=== PATIENT | female | born 2000 | race African-American/Black ===

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

== ENCOUNTER 2021-07-09 01:30 | Emergency (ER) | payer MEDICAID, OTHER ==
[~2021-07-09] VITALS: Ht 157.5 cm; Wt 68.5 kg
[2021-07-09 02:00] VITALS: BP 122/58
[2021-07-09] MEDS ORDERED: TOPUD MT (02:54)
== END 2021-07-09 03:47 | disposition home or self-care (01) ==
LOC: ER 01:30
DX: M25.572 Pain in left ankle and joints of left foot (principal); F31.9 Bipolar disorder, unspecified; V03.90XA Pedestrian on foot injured in collision with car, pick-up truck or van, unspecified whether traffic or nontraffic accident, initial encounter; Y93.01 Activity, walking, marching and hiking; Y92.9 Unspecified place or not applicable
CPT/HCPCS: 73610; 81025; 99283

== ENCOUNTER 2024-01-15 23:30 | Emergency (ER) | payer MEDICAID, OTHER ==
[~2024-01-15] VITALS: Ht 157.5 cm; Wt 64.0 kg
[~2024-01-15 23:30] MED LIST changes: +TOPUD MT
[2024-01-16 00:23] VITALS: O2SAT 100
[2024-01-16] MEDS ORDERED: ONDANSETRON HCL 4MG TABLET PO ONE (01:15)
[2024-01-16 01:57] LABS: BASOPHILS % 0.3 % (0.0-2.0); EOSINOPHILS % 0.8 % (0.0-5.0); HEMATOCRIT. 39.5 % (36.0-48.0); HEMOGLOBIN. 12.6 g/dL (12.0-16.0); LYMPHOCYTES % 14.3 % (20.0-50.0); MEAN CORPUSCULAR HEMOGLOBIN 26.9 pg (28.0-32.0); MEAN CORPUSCULAR HGB CONC 31.9 g/dL (31.0-37.0); MEAN CORPUSCULAR VOLUME 84.1 fL (81.0-99.0); MEAN PLATELET VOLUME 8.6 fl (7.4-10.4); MONOCYTES % 5.6 % (2.0-8.0); PLATELET 339 x1000/uL (130-400); RED CELL DISTRIBUTION WIDTH 17.7 % (11.6-14.6); WHITE BLOOD COUNT 6.2 x1000/uL (4.5-11.0)
[2024-01-16 02:03] LABS: CHLORIDE 105 mEq/L (98-107); POTASSIUM 3.6 mEq/L (3.5-5.1); SODIUM 138 mEq/L (136-145)
[2024-01-16 02:04] LABS: CALCIUM 9.6 mg/dL (8.7-10.4); CARBON DIOXIDE 25 mEq/L (21-32)
[2024-01-16 02:09] LABS: CREATININE 0.7 mg/dL (0.6-1.0); GLUCOSE 92 mg/dL (70-105); UREA NITROGEN BLOOD 10 mg/dL (9-23)
[2024-01-16 02:48] LABS: ALANINE AMINOTRANSFERASE 16 IU/L (10-49); ALBUMIN 4.6 g/dL (3.2-4.8); ASPARTATE AMINOTRANSFERASE 20 IU/L (<34); BILIRUBIN TOTAL 0.3 mg/dL (0.1-1.0)
[2024-01-16] MEDS: ONDANSETRON HCL 4MG TABLET PO NR (02:48)
[2024-01-16 02:50] LABS: BILIRUBIN DIRECT < 0.1 mg/dL (<=3.0)
[2024-01-16 03:20] LABS: CLARITY URINE CLOUDY (CLEAR); COLOR URINE DARK YELLOW (YELLOW); GLUCOSE URINE NEGATIVE (NEGATIVE); KETONES URINE TRACE (NEGATIVE); LEUKOCYTE ESTERASE URINE NEGATIVE (NEGATIVE); NITRITE URINE NEGATIVE (NEGATIVE); OCCULT BLOOD URINE NEGATIVE (NEGATIVE); PROTEIN URINE 1+ (NEGATIVE); SPECIFIC GRAVITY URINE 1.038 (1.005-1.030); UROBILINOGEN URINE 0.2 E.U./dL (0.2-1.0)
[2024-01-16] MEDS ORDERED: IMOD MT (04:24)
[2024-01-16] MEDS ORDERED: ONDA4TAB50 MT (04:24)
[2024-01-16] MEDS: SODIUM CHLORIDE 0.9% 1,000 ML IV NR (04:30)
[2024-01-16 05:40] VITALS: TEMP 36.61404; O2SAT 98
[2024-01-16 05:55] VITALS: BP 138/90; PULSE 100; RESP 20
[2024-01-16] MEDS: HYDROCODONE/ACETAMINOPHEN 5/325MG TABLET PO ONE (05:55)
[2024-01-16 06:07] LABS: BACTERIA URINE 1+; RBC URINE NONE SEEN /hpf (0-2); SQUAMOUS EPITHELIAL CELL URINE 2+ /lpf (RARE/1+); WBC URINE 0-2 /hpf (0-2)
[2024-01-17] MEDS ORDERED: CEPH500T MT (02:41)
[2024-01-17] MEDS ORDERED: P50 PO (02:41)
== END 2024-01-16 05:57 | disposition home or self-care (01) ==
LOC: ER 23:30
DX: B34.9 Viral infection, unspecified (principal); E86.0 Dehydration; F12.10 Cannabis abuse, uncomplicated
CPT/HCPCS: 99283; 80076; 80048; 81003; 83690; 85025; 36415; 96360; Q0162; Z7610

== ENCOUNTER 2025-03-24 02:00 | Emergency (ER) | payer MEDICAID ==
[~2025-03-24] VITALS: Ht 157.5 cm; Wt 68.0 kg
[~2025-03-24 02:00] MED LIST changes: +CEPH500T MT; +FLUO10CA PO; -FLUO10CA25 PO; +IMOD MT; +ONDA4TAB50 MT; +P50 PO
[2025-03-24 02:05] VITALS: PULSE 76; RESP 18; O2SAT 99
[2025-03-24 02:06] VITALS: TEMP 36.9; O2SAT 96
[2025-03-24] MEDS ORDERED: BENZ100C86 MT (03:59)
[2025-03-24] MEDS ORDERED: GUAI-450 MT (03:59)
== END 2025-03-24 04:26 | disposition home or self-care (01) ==
LOC: ER 02:00
DX: J06.9 Acute upper respiratory infection, unspecified (principal); B97.89 Other viral agents as the cause of diseases classified elsewhere; Z79.52 Long term (current) use of systemic steroids; Z79.899 Other long term (current) drug therapy; Z98.890 Other specified postprocedural states
CPT/HCPCS: 71045; 93005; 99283